=== PATIENT | female | born 1995 | race Caucasian/White ===

== ENCOUNTER 2016-09-10 08:47 | Emergency (ER) ==
[2016-09-10 08:52] VITALS: BMI 30.9
--- NOTE | 2016-09-10 09:23 | ED.PDOC ---
General ED Provider: Dr. FER BERMAN Chief Complaint: Respiratory Complaint Stated Complaint: Patient is a 21 year old who comes to the ER with compaliants of non productive cough, sore throat, chest pain with cough. Vomitied last night. Also complains of nasal conjestion. Time Seen by Physician: 09:20 Mode of Arrival: Walk-In Information Source: Patient Exam Limitations: No limitations [facility] Provider[facility] Nursing and Triage Documentation Reviewed and Agree: Yes Review of Systems - Review Of Systems Constitutional: Reports: No symptoms Eyes: Reports: No symptoms Ears, Nose, Mouth, Throat: Reports: Nose discharge Respiratory: Reports: Cough, Short of air Cardiac: Reports: Chest pain (with cough only ) GI: Reports: No symptoms : Reports: No symptoms Musculoskeletal: Reports: No symptoms Skin: Reports: No symptoms Neurological: Reports: No symptoms Endocrine: Reports: No symptoms Hematologic/Lymphatic: Reports: No symptoms All Other Systems: Reviewed and Negative Past Medical History - Past Medical History Previously Healthy: Yes Endocrine: Reports: None Cardiovascular: Reports: None Respiratory: Reports: None Hematological: Reports: None Gastrointestinal: Reports: None Genitourinary: Reports: None Neuro/Psych: Reports: None Musculoskeletal: Reports: None Cancer: Reports: None Last Menstrual Period: now Other Pertinent Past Medical History: Recently had a baby and is breast feeding. - Surgical History General Surgical History: Reports: None - Family History Family History: Reports: Unknown - Social History Smoking Status: Current some day smoker Hx Substance Use: No Alcohol Screening: None Lives: Alone - Immunizations Tetanus Shot up to Date: No Influenza Vaccine within 12 Months: No Pneumococcal Vaccine up to Date: No Physical Exam - Physical Exam Appearance: Ill-appearing Ill-appearing: Mild Eyes: CLARIBEL, EOMI, Conjunctiva clear ENT: Ears normal, Nose normal, Oropharynx normal Neck: Supple Respiratory: Airway patent, Breath sounds clear, Breath sounds equal, Respirations nonlabored Cardiovascular: Tachycardia GI/: Soft, Nontender, No masses, Bowel sounds normal, No Organomegaly Musculoskeletal: Normal strength, ROM intact, No edema, No calf tenderness Skin: Warm, Dry, Normal color Neurological: Sensation intact, Motor intact, Reflexes intact, Cranial nerves intact, Alert, Oriented Psychiatric: Anxious Critical Care Note - Critical Care Note Total Time (mins): 0 Course - Course Orders, Labs, Meds: Lab Review 09/10/16 09:22 Influenza A (Rapid) Negative Influenza B (Rapid) Negative Orders Category Date Time Status NEBULIZER TREATMENT Stat CARDIO 09/10/16 09:37 Completed Vital signs [ED VITAL SIGNS] .ONCE EMERGENCY 09/10/16 10:19 Active MOLECULAR GROUP A STREP Stat LAB 09/10/16 08:57 Results RAPID FLU A/B Stat LAB 09/10/16 09:22 Completed STREP SCREEN Stat LAB 09/10/16 08:57 Results Benzonatate [Tessalon Perles] MEDS 09/10/16 09:37 Discontinued 100 mg PO ONCE STA Ibuprofen [Motrin] MEDS 09/10/16 09:32 Discontinued 800 mg PO ONCE STA Ipratropium/Albuterol Neb [Duoneb] MEDS 09/10/16 09:37 Discontinued 1 vial NEB ONCE STA Medications Discontinued Medications Generic Name Dose Route Start Last Admin Trade Name Freq PRN Reason Stop Dose Admin Albuterol/Ipratropium 1 vial 09/10/16 09:37 09/10/16 09:53 Duoneb NEB 09/10/16 09:38 1 vial ONCE STA Administration Benzonatate 100 mg 09/10/16 09:37 09/10/16 09:41 Tessalon Perles PO 09/10/16 09:38 100 mg ONCE STA Administration Ibuprofen 800 mg 09/10/16 09:32 09/10/16 09:37 Motrin PO 09/10/16 09:33 800 mg ONCE STA Administration Vital Signs: Temp Pulse Resp BP Pulse Ox 09/10/16 08:47 99.1 F 118 H 20 137/88 97 Departure - Departure Time of Disposition: 10:14 Disposition: HOME SELF-CARE Discharge Problem: Viral sore throat Instructions: Viral Syndrome in Children (ED) Condition: Fair Pt referred to PMD for follow-up: Yes Additional Instructions: Push fluids Follow up with PCP in 3 days Alternate Tylenol with Ibuprofen as needed for fever Take Cough medications as prescribed. Prescriptions: Benzonatate [Tessalon Perles] 100 mg PO TID PRN #25 capsule PRN Reason: Cold Symptons Allergies/Adverse Reactions: Allergies clarithromycin [From Biaxin] Adverse Reaction (Verified 09/10/16 08:52) erythromycin ethylsuccinate [From Pediazole] Adverse Reaction (Verified 08:52) sulfisoxazole acetyl [From Pediazole] Adverse Reaction (Verified 09/10/16 08:52) Home Medications: Ambulatory Orders Albuterol Sulfate [Proair Hfa] 2 puff IH Q6H #1 puff 03/12/16 Etonogestrel [Nexplanon] 1 applic IMPLANT DIRECTED 03/12/16 Benzonatate [Tessalon Perles] 100 mg PO TID PRN #25 capsule 09/10/16 Disposition Discussed With: Patient
[2016-09-10] MEDS ORDERED: MOTRIN PO STA (09:32)
[2016-09-10] MEDS ORDERED: DUONEB NEB STA (09:37)
[2016-09-10] MEDS ORDERED: TESSALON PERLES PO STA (09:37)
[2016-09-10 09:50] LABS: FLU INTERNAL QC INTERNAL QC VALID; RAPID FLU A NEGATIVE (NEGATIVE); RAPID FLU B NEGATIVE (NEGATIVE)
[2016-09-10 11:22] VITALS: BP 123/70; TEMP 97.2
== END 2016-09-10 10:35 | disposition home or self-care (01) ==
LOC: ED 08:47
DX: J02.9 Acute pharyngitis, unspecified (principal); B34.9 Viral infection, unspecified; F17.210 Nicotine dependence, cigarettes, uncomplicated
CPT/HCPCS: 87651; 87804; 87880; 94640; 99283

== ENCOUNTER 2017-03-01 18:41 | Emergency (ER) ==
[2017-03-01 18:53] VITALS: BP 118/82; TEMP 98.1; BMI 28.3
--- NOTE | 2017-03-01 18:56 | ED.PDOC ---
General ED Provider: Dr. GARETH DELA CRUZ-ER Chief Complaint: Vaginal Discharge/Swelling Stated Complaint: i think i have a bacterial infection--i have discharge--i dont have any bumps Time Seen by Physician: 18:55 Mode of Arrival: Walk-In Information Source: Patient Exam Limitations: No limitations Primary Care Provider: [facility] Nursing and Triage Documentation Reviewed and Agree: Yes Complaint Exam - UTI Female Complaint/Exam Patient Complains of: Reports: Painful urination Onset/Duration: 2 days Symptoms Are: Still present Timing: Intermittent Initial Severity: Mild Current Severity: Mild Location of Pain: Reports: Vulva Associated Signs and Symptoms: Reports: Vaginal discharge. Denies: Fever, Chills, Flank pain, Dyspareunia Patient Rh Status: Unknown Related Surgical History: Reports: None CVA Tenderness: No Suprapubic Tenderness: No Vulva Exam: Present: Labial erythema. Absent: Labial lesions Differential Diagnoses: Other Review of Systems - Review Of Systems Constitutional: Reports: No symptoms Eyes: Reports: No symptoms Ears, Nose, Mouth, Throat: Reports: No symptoms Respiratory: Reports: No symptoms Cardiac: Reports: No symptoms GI: Reports: No symptoms : Reports: No symptoms, Discharge, Urgency, Other Musculoskeletal: Reports: No symptoms Skin: Reports: No symptoms Neurological: Reports: No symptoms Endocrine: Reports: No symptoms Hematologic/Lymphatic: Reports: No symptoms All Other Systems: Reviewed and Negative Past Medical History - Past Medical History Previously Healthy: Yes Endocrine: Reports: None Cardiovascular: Reports: None Respiratory: Reports: None Hematological: Reports: None Gastrointestinal: Reports: None Genitourinary: Reports: None Neuro/Psych: Reports: None Musculoskeletal: Reports: None Cancer: Reports: None Last Menstrual Period: NOW Other Pertinent Past Medical History: Recently had a baby and is breast feeding. - Surgical History General Surgical History: Reports: None - Family History Family History: Reports: Unknown - Social History Smoking Status: Current some day smoker Hx Substance Use: No Alcohol Screening: None Lives: With family - Immunizations Influenza Vaccine within 12 Months: No Pneumococcal Vaccine up to Date: No Physical Exam - Physical Exam Appearance: Well-appearing, No pain distress, Well-nourished Eyes: CLARIBEL, EOMI, Conjunctiva clear ENT: Ears normal, Nose normal, Oropharynx normal Neck: Supple Respiratory: Airway patent, Breath sounds clear, Breath sounds equal, Respirations nonlabored Cardiovascular: RRR GI/: Soft, Nontender, No masses, Bowel sounds normal, No Organomegaly Musculoskeletal: Normal strength, ROM intact, No edema, No calf tenderness Skin: Warm, Dry, Normal color Neurological: Sensation intact, Motor intact, Reflexes intact, Cranial nerves intact, Alert, Oriented Psychiatric: Affect appropriate, Mood appropriate Critical Care Note - Critical Care Note Total Time (mins): 0 Course - Course Orders, Labs, Meds: Orders Category Date Time Status URINALYSIS C & S IF INDICATED Stat LAB 03/01/17 18:51 Uncollected URINE CULTURE Stat LAB 03/01/17 18:51 Uncollected URINE Stat LAB 03/01/17 18:51 Uncollected Vital Signs: Temp Pulse Resp BP Pulse Ox 03/01/17 18:43 98.1 F 90 18 118/82 96 Departure - Departure Time of Disposition: 18:57 Disposition: HOME SELF-CARE Discharge Problem: Vaginal discharge Instructions: Bacterial Vaginosis (ED) Condition: Good Pt referred to PMD for follow-up: Yes Additional Instructions: diflucan 100mg x 3 days--flagyl 250mg tid x 7 days--f/u with pcp if not improved Allergies/Adverse Reactions: Allergies clarithromycin [From Biaxin] Adverse Reaction (Verified 03/01/17 18:45) erythromycin ethylsuccinate [From Pediazole] Adverse Reaction (Verified 18:45) sulfisoxazole acetyl [From Pediazole] Adverse Reaction (Verified 03/01/17 18:45) Home Medications: Ambulatory Orders Etonogestrel [Nexplanon] 1 applic IMPLANT DIRECTED 03/12/16 Disposition Discussed With: Patient
[2017-03-01 19:06] LABS: BILIRUBIN,URINE Negative (NEGATIVE); KETONES,URINE Trace (NEGATIVE); LEUKOCYTE ESTERASE ,URINE Trace (NEGATIVE); NITRITE,URINE Negative (NEGATIVE); PROTEIN,URINE Negative (NEGATIVE); URINE, BLOOD 2+ (NEGATIVE)
[2017-03-01 19:07] LABS: ADD URINE MICROSCOPIC YES; URINE PREGNANCY INTERNAL QC INTERNAL QC VALID
[2017-03-01 19:12] LABS: BACTERIA,URINE 1+ (NOT PRESENT)
== END 2017-03-01 19:14 | disposition home or self-care (01) ==
LOC: ED 18:41
DX: N89.8 Other specified noninflammatory disorders of vagina (principal); R30.0 Dysuria; F17.210 Nicotine dependence, cigarettes, uncomplicated
CPT/HCPCS: 81001; 81025; 87086; 99283

== ENCOUNTER 2017-09-13 10:11 | Emergency (ER) ==
[2017-09-13 10:16] VITALS: BP 113/77; TEMP 98.4; BMI 35.3
--- NOTE | 2017-09-13 11:03 | ED.PDOC ---
General ED Provider: Dr. ROMI HOOPER Chief Complaint: Sore Throat Stated Complaint: sore throat flu like symp Time Seen by Physician: 10:19 Mode of Arrival: Walk-In Information Source: Patient, Family Exam Limitations: No limitations [facility] Nursing and Triage Documentation Reviewed and Agree: Yes Reviewed sepsis parameters & appropriate labs ordered?: Yes System Inflammatory Response Syndrome: Not Applicable Sepsis Protocol: For patient's 13 years and over: Temp is 96.8 and below OR 101 and greater Pulse >90 BPM Resp >20/minute Acutely Altered Mental Status Are patient's symptoms suggestive of a new infection, such as: -Pneumonia -Skin, Soft Tissue -Endocarditis -UTI -Bone, Joint Infection -Implantable Device -Acute Abdominal Infection -Wound Infection -Meningitis -Blood Stream Catheter Infection -Unknown System Inflammatory Response Syndrome: Not Applicable EENT Complaint Exam - Throat Complaint/Exam Onset/Duration: 2 days Symptoms Are: Still present Timimg: Intermittent Initial Severity: Moderate Current Severity: Moderate Aggravating: Reports: Eating Alleviating: Reports: None Associated Signs and Symptoms: Reports: Cough, Nasal congestion. Denies: Fever , Dysphagia, Drooling, Foreign body sensation, Chills, Wheezing, Hoarseness, Sinus discomfort, Difficulty breathing, Lethargy, Irritability, Decreased activity, Vomiting, Diarrhea, Decreased hearing, Ear drainage Uvula Midline: Yes Giselle-tonsillar Fluctuence: No Scarlatinaform Rash Present: No Stridor Present: No Sinus Tenderness Present: No Tonsillar Hypertrophy Present: No Tonsillar Exudate Present: No Giselle-tonsillar Swelling Present: No Adenopathy Present: No Splenomegaly Present: No Differential Diagnoses: Pharyngitis Review of Systems - Review Of Systems Constitutional: Reports: Malaise Eyes: Reports: No symptoms Ears, Nose, Mouth, Throat: Reports: Throat pain Respiratory: Reports: Cough Cardiac: Reports: No symptoms GI: Reports: No symptoms : Reports: No symptoms Musculoskeletal: Reports: No symptoms Skin: Reports: No symptoms Neurological: Reports: No symptoms Endocrine: Reports: No symptoms Hematologic/Lymphatic: Reports: No symptoms All Other Systems: Reviewed and Negative Past Medical History - Past Medical History Previously Healthy: Yes Endocrine: Reports: None Cardiovascular: Reports: None Respiratory: Reports: None Hematological: Reports: None Gastrointestinal: Reports: None Genitourinary: Reports: None Neuro/Psych: Reports: None Musculoskeletal: Reports: None Cancer: Reports: None Last Menstrual Period: currently Other Pertinent Past Medical History: Recently had a baby and is breast feeding. - Surgical History General Surgical History: Reports: None - Family History Family History: Reports: Unknown - Social History Smoking Status: Current some day smoker Hx Substance Use: No Alcohol Screening: None - Immunizations Tetanus Shot up to Date: Yes Influenza Vaccine within 12 Months: No Pneumococcal Vaccine up to Date: No Physical Exam - Physical Exam Appearance: Ill-appearing Ill-appearing: Mild Pain Distress: Mild Eyes: CLARIBEL, EOMI, Conjunctiva clear ENT: Erythema Respiratory: Airway patent, Breath sounds clear, Breath sounds equal, Respirations nonlabored Cardiovascular: RRR, Pulses normal, No rub, No murmur GI/: Soft, Nontender, No masses, Bowel sounds normal, No Organomegaly Musculoskeletal: Normal strength, ROM intact, No edema, No calf tenderness Skin: Warm, Dry, Normal color Neurological: Sensation intact, Motor intact, Reflexes intact, Cranial nerves intact, Alert, Oriented Psychiatric: Affect appropriate, Mood appropriate Critical Care Note - Critical Care Note Total Time (mins): 0 Course - Course Orders, Labs, Meds: Orders Category Date Time Status FLU A & B MOLECULAR [FLU A/B MOLECULAR] Stat LAB 09/13/17 10:35 Received MOLECULAR GROUP A STREP Stat LAB 09/13/17 10:35 Received Vital Signs: Temp Pulse Resp BP Pulse Ox 09/13/17 10:12 98.4 F 95 H 16 113/77 97 Departure - Departure Time of Disposition: 11:02 Disposition: HOME SELF-CARE Discharge Problem: Sore throat symptom, Streptococcal sore throat Pharyngitis Qualifiers: Pharyngitis/tonsillitis etiology: unspecified etiology Qualified Code(s): J02.9 - Acute pharyngitis, unspecified Instructions: Pharyngitis (ED) Condition: Good Pt referred to PMD for follow-up: Yes IPMP verified?: No Additional Instructions: Please call your Family Physician as soon as possible to schedule a follow-up appointment. Prescriptions: Amoxicillin 500 mg PO Q8HR #30 tablet Allergies/Adverse Reactions: Allergies clarithromycin [From Biaxin] Adverse Reaction (Verified 09/13/17 10:17) erythromycin ethylsuccinate [From Pediazole] Adverse Reaction (Verified 10:17) sulfisoxazole acetyl [From Pediazole] Adverse Reaction (Verified 09/13/17 10:17) Home Medications: Ambulatory Orders Etonogestrel [Nexplanon] 1 applic IMPLANT DIRECTED 03/12/16 Amoxicillin 500 mg PO Q8HR #30 tablet 09/13/17
== END 2017-09-13 11:17 | disposition home or self-care (01) ==
LOC: ED 10:11
DX: J02.9 Acute pharyngitis, unspecified (principal); R05 Cough; F17.210 Nicotine dependence, cigarettes, uncomplicated
CPT/HCPCS: 87502; 87651; 99282

== ENCOUNTER 2017-12-14 10:01 | Outpatient (CLI) ==
--- NOTE | 2017-12-14 11:14 | DI ---
EXAM: Four views of the spine for scoliosis evaluation. History: Dorsalgia Findings: No acute fracture or subluxation. No significant scoliotic curvature of the spine. Disc space heights are preserved. Impression: Unremarkable exam. No scoliosis
== END 2017-12-14 10:02 | disposition home or self-care (01) ==
LOC: RAD 10:01
PROVIDERS: ATTEND Nurse Practitioner Family
DX: M54.9 Dorsalgia, unspecified (principal); R29.3 Abnormal posture
CPT/HCPCS: 72081

== ENCOUNTER 2017-12-16 10:49 | Outpatient (CLI) ==
--- NOTE | 2017-12-17 22:25 | DI ---
EXAM: Thoracic spine three view HISTORY: Abnormal posterior COMPARISON: None TECHNIQUE: Three views thoracic spine were performed FINDINGS: Vertebral bodies normal height. No fracture. No subluxation. Mild multilevel marginal o steophyte formation. Intervertebral spaces maintained. IMPRESSION: No fracture or subluxation.
== END 2017-12-16 10:50 | disposition home or self-care (01) ==
LOC: RAD 10:49
PROVIDERS: ATTEND Nurse Practitioner Family
DX: R29.3 Abnormal posture (principal); M54.9 Dorsalgia, unspecified